=== PATIENT | male | born 1990 ===

== ENCOUNTER 2018-09-06 20:39 | Emergency (ER) | payer OTHER ==
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
--- NOTE | 2018-09-06 22:24 | XRay Report ---
PROCEDURE: XR SPINE LUMBOSACRAL 2-3V TECHNIQUE: Frontal and lateral views lumbar spine and coned down lateral view lumbosacral junction HISTORY: LOWR BACK PAIN COMPARISONS: None FINDINGS: Bony alignment is normal. The vertebral heights and disc spaces are maintained. The paraspinous soft tissues are unremarkable. IMPRESSION: 1. No plain film evidence of bony or soft tissue abnormality. If the patient remains symptomatic, MRI may be helpful. This document is electronically signed by Esha Danielle MD., September 06 2018 10:22:25 PM ET
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
[2018-09-07 00:32] VITALS: BP 103/58
== END 2018-09-07 00:30 | disposition home or self-care (01) ==
LOC: ED 20:39
DX: S39.012A Strain of muscle, fascia and tendon of lower back, initial encounter (principal); Z79.899 Other long term (current) drug therapy; V89.2XXA Person injured in unspecified motor-vehicle accident, traffic, initial encounter; Y93.89 Activity, other specified; Y92.488 Other paved roadways as the place of occurrence of the external cause; Y99.8 Other external cause status
CPT/HCPCS: 72100; 99283